=== PATIENT | female | born 1965 | race Hispanic/Latino ===

== ENCOUNTER 2017-11-25 15:09 | Observation (INO) | payer SELFPAY ==
[2017-11-25] MEDS ORDERED: Ondansetron HCl/PF 4 MG/2 ML Vial ONE (16:04)
[2017-11-25 16:08] LABS: Troponin I Less than 0.010 ng/mL (< 0.028)
[2017-11-25] MEDS ORDERED: diphenhydrAMINE 50 MG/ML VIAL ONE (18:20)
[2017-11-25] MEDS ORDERED: Metoclopramide HCl 10 MG/2 ML VIAL ONE (18:20)
[2017-11-25 19:23] LABS: Troponin I Less than 0.010 ng/mL (< 0.028)
[2017-11-25] MEDS ORDERED: Ondansetron HCl/PF 4 MG/2 ML Vial IVP PRN (19:37)
[2017-11-25] MEDS ORDERED: Acetaminophen 325 MG TAB PO PRN (19:37)
[2017-11-25] MEDS ORDERED: Ondansetron ODT 4 MG TAB SL PRN (19:37)
[2017-11-25 20:20] VITALS: BMI 27.8
[2017-11-25] MEDS ORDERED: Nitroglycerin 2% Ointment 1 INCH/1 GM Packet TOP PRN (21:16)
--- NOTE | 2017-11-25 22:06 | HP ---
CHIEF COMPLAINT: Chest pain. HISTORY OF PRESENT ILLNESS: This is a 52-year-old female with past medical history of asthma and RA presenting with chest pain, which started this morning. Per the patient, the chest pain was located substernally, radiating to the back on the pain scale of 8/10. The patient states that her chest gregory n was associated with nausea, vomiting, diarrhea, and subjective fever. The patient also had a sligh t shortness of breath as well. The patient went to [facility] and the patient's temperature at the [facility]gent [facility] was 102. The patient was then transferred to ED because the patient's chest p ain did not resolve after receiving 2 sublingual nitroglycerin and aspirin. En route, the patient re ceived morphine. The patient stated that the chest pain got better with morphine; however, chest gregory n did not completely resolve. In addition, upon further questioning, the patient states that she has been having this vomiting for the past 3 days. She stated she woke up, was having vomiting, diarrhe a. The patient stated she denies eating any new foods. She has not traveled any other place and she has not taken any new antibiotics; however, the patient is having this diarrhea, which is very uncha racteristic for her. REVIEW OF SYSTEMS: Positive for chest pain, nausea, vomiting, diarrhea, otherwise as documented in t he HPI all other systems were reviewed and are negative. PAST MEDICAL HISTORY: Asthma and rheumatoid arthritis. PAST SURGICAL HISTORY: Left knee ACL tear repair. PSYCHIATRIC HISTORY: Anxiety. SOCIAL HISTORY: Patient drinks occasionally. Patient denies any illicit drug use, smoking. Patient is a former smoker. Per electronic medical records, the patient was previously a former drug abuser . 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. FAMILY HISTORY: Reviewed and noncontributory to this hospital visit. ALLERGIES: Patient is allergic to DEMEROL, PENICILLINS and SULFA DRUGS. CURRENT MEDICATIONS: The patient takes Nexium 20 mg daily, and multivitamins. PHYSICAL EXAMINATION: VITAL SIGNS: Temperature is 97.8, blood pressure is 126/67, heart rate of 70, respiratory rate of 18 , O2 sat of 98. GENERAL: The patient is lying in bed comfortably, speaking in full sentences, does not appear to be in any distress, alert and oriented x3. HEENT: Normocephalic, atraumatic. Pupils are equally round and reactive to light. Extraocular move ments are intact. Trachea is midline. No deviation. Mucous membranes are moist. NECK: No JVD. Neck is supple. LUNGS: Clear to auscultation bilaterally. No wheezing, no rales, no rhonchi is appreciated. CARDIOVASCULAR: The patient has a reproducible tenderness at the left upper chest, positive S1, S2, regular rate and rhythm. No murmurs, no gallops or rubs appreciated. EXTREMITIES: Upper extremity, the patient had 5/5 upper extremity strength, 5/5 lower extremity stre ngth. NEUROLOGIC: The patient is alert and oriented x3. Neuro cheung, no focal neurologic deficits noted. SKIN: Warm, dry, and intact. PSYCHIATRIC: The patient has normal affect. Alert and oriented x3. EKG shows nonspecific EKG with a rate of 75 sinus rhythm. EMERGENCY DEPARTMENT COURSE: The patient received Benadryl 25, normal saline, morphine, and Zofran. X-ray that was done in the ED showed no cardiopulmonary process. Labs were done in [place]. At th is point, we do not know creatinine. However, the patient's troponin x2 has been negative at 0.010. ASSESSMENT AND PLAN: This is a 52-year-old female with past medical history of asthma presenting wit h: 1. Chest pain radiating to the back. At this point, we will rule out ACS. The patient's EKG, tropo nins has been negative. At this time, we are going to continue giving the patient nitro, aspirin for her chest pain. We have ordered 2D echo and we will do stress test in the morning. I have also ord ered lipase for the patient since the patient stating that the chest pain is radiating to the back. We are going to rule out pancreatitis. We will also get a CT of the thorax to rule out any aortic di ssection. 2. History of anxiety. Patient has a history of anxiety and this can also be a component of her patrice st pain, but on questioning, patient is anxious. The patient's heart rate is also in the 60s. At this point, we will just monitor the patient closely. 3. History of asthma. The patient is not wheezing, not having any apparent asthma attack. We will continue the patient on DuoNebs and we will monitor the patient closely. 4. Deep venous thrombosis and gastrointestinal prophylaxis.
[2017-11-25 22:14] LABS: Troponin I Less than 0.010 ng/mL (< 0.028)
[2017-11-25] MEDS ORDERED: Sodium Chloride 0.9% 1,000 ML IV SCH (23:15)
[2017-11-26 05:12] LABS: #Eosinphils 0.2 thou/uL (0.0-0.7); #Lymphocytes 1.1 thou/uL (1.20-3.40); #Monocytes 0.4 thou/uL (0.11-0.59); #Neutrophils 1.7 thou/uL (1.40-6.50); %Eosinophils 5.6 % (0.0-10.0); %Lymphocytes 31.3 % (21.0-51.0); %Monocytes 12.2 % (0.0-10.0); %Neutrophils 49.9 % (42.0-75.0); Mean Corpuscular HGB CONC 34.9 g/dL (32.0-36.0); Mean Corpuscular Hemoglobin 30.5 pg (27.0-31.0); Mean Corpuscular Volume 87.3 fL (78.0-98.0); Mean Platelet Volume 8.1 fL (7.4-10.4); Platelet Count 173 thou/uL (130-400); RBC Distribution Width 12.5 % (11.5-14.5); Red Blood Cell (RBC) Count 3.62 mill/uL (4.20-5.40); White Blood Cell (WBC) Count 3.4 thou/uL (4.8-10.8)
[2017-11-26 05:31] LABS: Anion Gap 8 mmol/L (10-20); BUN (Urea Nitrogen) 10 mg/dL (9.8-20.1); Calc. Creatinine Clearance 104 mL/min (70-130); Carbon Dioxide 21 mmol/L (22-29); Chloride 114 mmol/L (98-107); Estimated GFR-MDRD Greater than 90; Glucose 91 mg/dL (70-105); Potassium 3.3 mmol/L (3.5-5.1); Sodium 140 mmol/L (136-145)
[2017-11-26] MEDS ORDERED: Sodium Chloride 0.9% 1,000 ML IV SCH ×2 (06:30→11:30)
[2017-11-26] MEDS ORDERED: Potassium Chloride 20 MEQ TAB PO SCH (06:45)
--- NOTE | 2017-11-26 08:53 | CT ---
CHEST CT SCAN WITH IV CONTRAST: Date: 11/26/17 HISTORY: 52-year-old female with history of chest pain, occasional shortness of breath. COMPARISON: 11/25/17 chest 1 view. FINDINGS: There are some increased linear and interstitial markings noted bilaterally, which have developed sin ce the prior study. Small bilateral pleural effusions. Findings certainly suggest some developing int erstitial edema and vascular congestion. Minimal bibasilar subsegmental atelectasis. Small, partially fat-containing hiatal hernia. Borderline size spleen. No mediastinal mass or adenopathy. No evidence of aortic aneurysm. No central pulmonary artery thrombosis. IMPRESSION: Developing bilateral interstitial opacities and small pleural effusions since prior chest x-ray, evid ence for vascular congestion and minimal interstitial edema. Minimal subsegmental atelectasis. No con fluent pneumonia. No mediastinal mass or adenopathy. Small, partially fat-containing hiatal hernia. O ther findings as above. POS: [facility]
[2017-11-26] MEDS ORDERED: Potassium Chloride 20 MEQ in Premix Bag 1 BAG IVPB SCH ×2 (09:00→12:15)
[2017-11-26] MEDS: Sodium Chloride 0.9% 1,000 ML IV SCH ×2 (11:21→21:45)
--- NOTE | 2017-11-26 12:35 | NM ---
RADIONUCLIDE STRESS REST MYOCARDIAL PERFUSION SCAN WITH CT ATTENUATION CORRECTION AND SPECT IMAGING LEFT VENTRICULAR WALL MOTION EVALUATION AND EJECTION FRACTION: History: Chest pain. FINDINGS: Lexiscan protocol. There is homogeneous uptake of radiotracer throughout the left ventricular myocard ium on the stress and rest images. No focal perfusion defect or reversibility. QGS analysis of gated SPECT images shows no focal wall motion abnormalities. Left ventricular ejection fraction estimated a t greater than 80%. IMPRESSION: Normal myocardial perfusion scan. Normal LVEF. POS: [facility]
[2017-11-26] MEDS ORDERED: Regadenoson 0.4 MG/5 ML SYRINGE ONE (14:23)
[2017-11-26 15:04] LABS: ANA Symphony (Qualitative) Negative (Negative); dsDNA IgG Antibody 0.8 IU/mL (<10 Negative)
[2017-11-26 15:07] LABS: CCP IgG Antibody 0.7 EliAU/mL (<7 Negative); EliA RAS New Method **** NEW METHOD ****; Rheumatoid Factor IgA Antibody 3.7 IU/mL (<14 Negative)
--- NOTE | 2017-11-26 21:46 | HP ---
CHIEF COMPLAINT: Chest pain/nausea, vomiting, and diarrhea. HISTORY OF PRESENT ILLNESS: The patient is a very pleasant 52-year-old female with a history of asth ma and questionable rheumatoid arthritis; however, she is currently not on any medication and accordi ng to her, she was told that she had rheumatoid arthritis by an ER physician. Patient came in with c omplaints of some chest pain, palpitations and diaphoresis. Patient stated that about 4 days ago, sh e started having nausea, vomiting, and diarrhea. The patient stated that she would go to the [facility]9 times a day with also significant amount of nausea, vomiting. She denies eating out anywhere. She denies taking any new medications. She denies any sick contacts. She denies any travel anywher e outside either. The patient stated that she tried to take Gatorade; however, was unable to keep an ything down. Patient stated that about yesterday, she started having significant amount of heart pal pitations and felt very diaphoretic. She took an Aleve and tried to get some rest, however, when she woke up, she felt similar. So she came into the ER for further evaluation. The patient also stated that she thought she was going to pass out; however, did not have any kind of syncopal episode. In the ED at another hospital, she was noted to have a temperature of 102.0. PAST MEDICAL HISTORY: Asthma and rheumatoid arthritis. PAST SURGICAL HISTORY: She has a history of a torn ACL x3 of her left knee. FAMILY HISTORY: Hypertension, diabetes, and cancer. SOCIAL HISTORY: She denies any drug use or smoking history, but has occasional alcohol use. MEDICATIONS: She takes Nexium at times. REVIEW OF SYSTEMS: All negative except for the ones mentioned above in the HPI. LABORATORY DATA: WBCs are 3.4, hemoglobin of 11.0, hematocrit of 31.6. Chemistry: Sodium of 140, p otassium of 3.3, bicarbonate of 21, anion gap is normal. Her proBNP was mildly elevated at 275 . Her troponins were negative. Lipase was 20. She had a CT chest that was done, which indicated just bilateral interstitial opacities and small ple ural effusions, mild vascular congestion was noted. She has an echo ordered, which is pending. ASSESSMENT AND PLAN: The patient is a very pleasant 52-year-old female who presents to the hospital with the above stated complaints: 1. Chest pain, atypical in nature. The patient given her risk factors will undergo a stress test. Troponins x3 are negative. We will continue an aspirin. We will also check a lipid level in the mor judith. 2. Also, hypotension. The patient's systolics in the low 90s. We will give her a liter of fluid ch allenge. Continue baseline normal saline. 3. Questionable rheumatoid arthritis. The patient states that she has never had any workup done due to insurance purposes. We will check an GENNA also check an anti-CCP however, I did tell the patient that most likely her results will not come back prior to her discharge. 4. Possible viral gastroenteritis. The patient does have an elevated temperature. She had nausea, vomiting, diarrhea for 3 days, which currently now has resolved. She had diarrhea x1 this a.m. Will check stool for WBCs and also C. diff and Campylobacter and E. coli. 5. Palpitations. We will check an echocardiogram, which has been ordered, but it is pending. 6. Hypokalemia. We will replace. 7. Non-anion gap metabolic acidosis is most likely secondary to her nausea, vomiting, and diarrhea. 8. Deep venous thrombosis prophylaxis. We will put the patient on sequential compression devices or subcu heparin.
[2017-11-26] MEDS ORDERED: Acetaminophen 1,000 MG in Premix Bag 1 BAG IVPB PRN (21:52)
[2017-11-27 05:17] LABS: Anion Gap 11 mmol/L (10-20); BUN (Urea Nitrogen) 5 mg/dL (9.8-20.1); Calc. Creatinine Clearance 106 mL/min (70-130); Calcium 8.3 mg/dL (7.8-10.44); Carbon Dioxide 22 mmol/L (22-29); Chloride 112 mmol/L (98-107); Estimated GFR-MDRD Greater than 90; Glucose 100 mg/dL (70-105); Potassium 3.4 mmol/L (3.5-5.1); Sodium 142 mmol/L (136-145)
[2017-11-27] MEDS: Sodium Chloride 0.9% 1,000 ML IV SCH ×2 (11:50→20:25)
[2017-11-27] MEDS: Acetaminophen 325 MG TAB PO PRN ×2 (13:41→20:24)
--- NOTE | 2017-11-27 15:50 | PDOC.PN ---
- Subjective Encounter Start Date: 11/27/17 Encounter Start Time: 10:00 Subjective: pt up in bed gets dizzy when she gets up - Objective Resuscitation Status: Resuscitation Status FULL:Full Resuscitation Vital Signs & Weight: Vital Signs (12 hours) Temp Pulse Resp BP BP BP BP 11/27/17 12:21 118/81 122/80 11/27/17 11:45 98.9 F 76 16 113/65 11/27/17 09:20 83 119/76 11/27/17 08:05 97.9 F 70 20 108/65 BP Pulse Ox 11/27/17 12:21 129/73 11/27/17 11:45 95 11/27/17 09:20 11/27/17 08:05 97 Weight Weight 141 lb 3.2 oz I&O: 11/26/17 11/27/17 11/28/17 06:59 06:59 06:59 Intake Total 1000 2824 412 Output Total 400 1100 Balance 600 1724 412 Result Diagrams: 11/26/17 04:45 11/27/17 04:16 Phys Exam - Physical Examination Neck: no nodes, no JVD, supple, full ROM Respiratory: no wheezing, no rales, no rhonchi, wheezing present, clear to auscultation bilateral Cardiovascular: RRR, no significant murmur, no rub, gallop, irregular Gastrointestinal: soft, non-tender, no distention, positive bowel sounds Dx/Plan (1) Chest pain Code(s): R07.9 - CHEST PAIN, UNSPECIFIED Status: Acute (2) Hypotension Status: Acute (3) Nausea & vomiting Code(s): R11.2 - NAUSEA WITH VOMITING, UNSPECIFIED Status: Acute - Plan pt still very dizzy, her bp was low last night -: will check cortisol level -: echo appears normal -: RA work up normal * . Review of Systems - Review of Systems Respiratory: negative: Cough, Dry, Shortness of Breath, Hemoptysis, SOB with Excertion, Pleuritic Pain, Sputum, Wheezing Cardiovascular: negative: chest pain, palpitations, orthopnea, paroxysmal nocturnal dyspnea, edema, light headedness, other Gastrointestinal: negative: Nausea, Vomiting, Abdominal Pain, Diarrhea, Constipation, Melena, Hematochezia, Other - Medications/Allergies Allergies/Adverse Reactions: Allergies Allergy/AdvReac Type Severity Reaction Status Date / Time meperidine [From Demerol] Allergy Verified 11/25/17 21:57 Penicillins Allergy Verified 11/25/17 21:57 Sulfa (Sulfonamide Allergy Verified 11/25/17 21:57 Antibiotics) Medications: Current Medications Acetaminophen (Tylenol) 650 mg PO Q6H PRN PRN Reason: Headache/Fever or Pain Last Admin: 11/27/17 13:41 Dose: 650 mg Sodium Chloride (Normal Saline 0.9%) 1,000 mls @ 80 mls/hr IV .[id number] [facility] Last Admin: 11/27/17 11:50 Dose: 1,000 mls Acetaminophen 1,000 mg/ Device 100 mls @ 400 mls/hr IVPB Q6H PRN PRN Reason: Mild-Moderate Pain (1-5) Stop: 11/27/17 21:53 Last Admin: 11/26/17 22:17 Dose: 100 mls Nitroglycerin (Nitro-Bid 2% Ointment) 0.25 inch TOP Q72H PRN PRN Reason: .CHEST PAIN Last Admin: 11/25/17 21:25 Dose: 0.25 inch Pantoprazole Sodium (Protonix) 40 mg PO QAM [facility] Last Admin: 11/27/17 11:13 Dose: Not Given Sodium Chloride (Flush - Normal Saline) 10 ml IVF Q12HR [facility] Last Admin: 11/27/17 11:13 Dose: Not Given Sodium Chloride (Flush - Normal Saline) 10 ml IVF PRN PRN PRN Reason: Saline Flush
--- NOTE | 2017-11-27 17:39 | EKG ---
Test Reason : STAT Blood Pressure : / mmHG Vent. Rate : 068 BPM Atrial Rate : 068 BPM P-R Int : 154 ms QRS Dur : 078 ms QT Int : 440 ms P-R-T Axes : 041 -06 014 degrees QTc Int : 467 ms Normal sinus rhythm Inferior infarct , age undetermined Abnormal ECG When compared with ECG of 29-AUG-1996 12:58, Inferior infarct is now Present QT has lengthened Confirmed by DR. Kim COWAN ([id number]) on 11/27/2017 5:39:33 PM Referred By: MED Confirmed By:DR. Kim COWAN
[2017-11-28] MEDS: Acetaminophen 325 MG TAB PO PRN (08:17)
[2017-11-28] MEDS: Sodium Chloride 0.9% 1,000 ML IV SCH (08:19)
[2017-11-28 12:04] VITALS: TEMP 98.4
[2017-11-28 12:17] VITALS: BP 130/75
--- NOTE | 2017-11-28 15:19 | DIS ---
DATE OF ADMISSION: 11/25/2017 DATE OF DISCHARGE: 11/28/2017 DISCHARGE DIAGNOSES: As of the following; 1. Chest pain. 2. Nausea, vomiting, diarrhea. 3. Hypotension. HOSPITAL COURSE: The patient is a very pleasant 52-year-old female who initially presented to the [facility] with complaints of some chest tightness. Her troponin x3 was negative. She did have hypotens ion and was given 2 liters of normal saline which responded really well to it. The patient stated th at prior to coming into the hospital, she had nausea, vomiting, diarrhea for about 3 days. The patie nt had tried to keep oral fluids down; however, was unable to do so. Patient did not have any diarrh ea while she was in the hospital, so no stool studies were able to be collected. The patient did hav e a stress test which was negative. She also had an echocardiogram for hypotension which appeared to be significantly abnormal at EF of 55%-60%, mild tricuspid regurgitation. Apparently she told me th at she had a history of rheumatoid arthritis; however, is not on any treatment. I did check her for GENNA and rheumatoid which was negative. She did have CT chest which indicated developing bilateral in terstitial opacities with small pleural effusion and just indicated some vascular congestion; however , no lymphadenopathy, no mass, none of that was noted. The patient's vital signs continued to improv e. She was tolerating oral liquids well. She will be discharged home. She will follow up with her primary care doctor. DISCHARGE MEDICATIONS: Nexium that she takes 20 mg daily. LABORATORY DATA: Her labs essentially were very normal. Again, she will be discharged home. Follow up with primary care. Cortisol level was checked which w as normal at 14.90. TSH was also normal. PHYSICAL EXAMINATION: VITAL SIGNS: Temperature 98.0, 73, 112/62, 16 and 96% on room air. GENERAL: She is awake, alert, oriented x3, does not appear in distress. CARDIOVASCULAR: S1, S2 present. No murmurs, rubs or gallops. ABDOMEN: Soft, nontender. Bowel sounds present x2. Orthostatics were negative.
--- NOTE | 2017-12-05 09:57 | STRESS ---
Acquisition Time: 2017-11-26 09:33:27 Total Exercise Time: 00:01:00 Test Indications: CHEST PAIN Medications: Protocol: LEXISCAN Max HR: 110 BPM 65% of Pred: 167 BPM Max BP: 120/062 mmHG Max Work Load: 1.0 METS RESTING ECG: NORMAL SINUS RHYTHM AT 66 BPM SYMPTOMS: NONE NORMAL BP RESPONSE ECTOPY: NONE ECG STRESS: NO SIGNIFICANT CHANGES INTERPRETATION: NEGATIVE ECG/AWAIT NUCLEAR IMAGES FOR DEFINITIVE DIAGNOSIS Confirmed by JOB MCGOWAN ([id number]) on 12/05/2017 9:56:01 AM Referred By: MD Lilli CASTANEDA Confirmed By:JOB MCGOWAN
--- NOTE | 2017-12-08 13:15 | EKG ---
Test Reason : Blood Pressure : / mmHG Vent. Rate : 075 BPM Atrial Rate : 075 BPM P-R Int : 146 ms QRS Dur : 074 ms QT Int : 412 ms P-R-T Axes : 031 -09 004 degrees QTc Int : 460 ms Normal sinus rhythm Normal ECG Confirmed by TY ART ([id number]), film editor WHIT CHEN ([id number]) on 12/08/2017 1:15:15 PM Referred By: Confirmed By:TY ART
== END 2017-11-28 13:16 | disposition home or self-care (01) ==
LOC: ERS 15:09 → 2SW 17:25
PROVIDERS: ADMIT Internal Medicine; ATTEND Internal Medicine
DX: R07.89 Other chest pain (principal); I95.9 Hypotension, unspecified; J45.909 Unspecified asthma, uncomplicated; M06.9 Rheumatoid arthritis, unspecified; F41.9 Anxiety disorder, unspecified; E87.6 Hypokalemia; E87.2 Acidosis; F19.11 Other psychoactive substance abuse, in remission; Z87.891 Personal history of nicotine dependence; Z79.899 Other long term (current) drug therapy; Z88.0 Allergy status to penicillin; Z88.2 Allergy status to sulfonamides; Z88.5 Allergy status to narcotic agent
CPT/HCPCS: 36415; 71260; 78452; 80048; 82533; 83520; 83690; 83880; 84443; 85025; 85652; 86038; 86140; 86200; 86225; 93005; 93010; 93017; 93306; 96361; 96365; 96366; 96367; 96375; A4216; A9500; G0378; J0131; J1200; J2270; J2405; J2765; J2785; J3480